=== PATIENT | female | born 2005 | race Caucasian/White ===

== ENCOUNTER 2025-04-30 18:10 | Emergency (ER) | payer OTHER ==
[~2025-04-30] VITALS: Ht 167.6 cm; Wt 64.0 kg
[2025-04-30 18:14] VITALS: O2SAT 98
[2025-04-30] MEDS ORDERED: LORAZEPAM 2MG/ML INJ IV ONE (19:00)
[2025-04-30] MEDS: ACETAMINOPHEN 325MG TABLET PO ONE (19:23)
[2025-04-30] MEDS: SODIUM CHLORIDE 0.9% 1,000 ML IV ONE ×2 (19:23→20:55)
[2025-04-30] MEDS: LORAZEPAM 2MG/ML UD SYRINGE IV SCH (19:24)
[2025-04-30 19:32] LABS: BASOPHILS % 0.5 % (0.0-2.0); EOSINOPHILS % 0.5 % (0.0-5.0); HEMATOCRIT. 39.3 % (36.0-48.0); HEMOGLOBIN. 13.6 g/dL (12.0-16.0); LYMPHOCYTES % 26.3 % (20.0-50.0); MEAN CORPUSCULAR HEMOGLOBIN 30.4 pg (28.0-32.0); MEAN CORPUSCULAR HGB CONC 34.5 g/dL (31.0-37.0); MEAN CORPUSCULAR VOLUME 88.2 fL (81.0-99.0); MEAN PLATELET VOLUME 9.1 fl (7.4-10.4); MONOCYTES % 4.7 % (2.0-8.0); PLATELET 233 x1000/uL (130-400); RED BLOOD CELL COUNT 4.46 mill/uL (4.2-5.4); RED CELL DISTRIBUTION WIDTH 12.7 % (11.6-14.6)
[2025-04-30 19:40] LABS: CARBON DIOXIDE 26 mEq/L (21-32); CHLORIDE 105 mEq/L (98-107); INR 1.1; POTASSIUM 3.8 mEq/L (3.5-5.1); PROTHROMBIN TIME 11.4 sec (9.6-11.0); SODIUM 139 mEq/L (136-145)
[2025-04-30 19:41] LABS: CALCIUM 9.5 mg/dL (8.7-10.4)
[2025-04-30 19:45] LABS: CREATININE 0.9 mg/dL (0.6-1.0)
[2025-04-30 19:46] LABS: ETHANOL BLOOD < 10 mg/dL (<10); GLUCOSE 101 mg/dL (70-105); UREA NITROGEN BLOOD 17 mg/dL (9-23)
[2025-04-30 19:56] LABS: TROPONIN I HIGH SENSITIVITY < 4 ng/L (3.0-34)
[2025-04-30 21:35] VITALS: TEMP 36.9
[2025-04-30 23:14] VITALS: BP 114/67; PULSE 62; RESP 19; O2SAT 100
== END 2025-04-30 23:30 | disposition home or self-care (01) ==
LOC: ER 18:10
DX: R55 Syncope and collapse (principal); F41.9 Anxiety disorder, unspecified; F41.0 Panic disorder [episodic paroxysmal anxiety]
CPT/HCPCS: 80048; 80320; 85025; 85610; 84484; 36415; 71045; 93005; 96361; 96374; 99285; J2060; J7030; G0480

== ENCOUNTER 2025-09-30 04:02 | Emergency (ER) | payer OTHER ==
[~2025-09-30] VITALS: Ht 160 cm; Wt 64.0 kg
[2025-09-30 04:10] VITALS: TEMP 37.1; O2SAT 100
[2025-09-30 04:26] LABS: BASOPHILS % 0.4 % (0.0-2.0); EOSINOPHILS % 0.5 % (0.0-5.0); HEMATOCRIT. 43.5 % (36.0-48.0); HEMOGLOBIN. 14.6 g/dL (12.0-16.0); LYMPHOCYTES % 32.4 % (20.0-50.0); MEAN PLATELET VOLUME 8.9 fl (7.4-10.4); MONOCYTES % 4.9 % (2.0-8.0); NEUTROPHILS % 61.8 % (40.0-76.0); PLATELET 253 x1000/uL (130-400); RED BLOOD CELL COUNT 5.04 mill/uL (4.2-5.4); RED CELL DISTRIBUTION WIDTH 13.9 % (11.6-14.6)
[2025-09-30 04:48] LABS: CREATININE 1.0 mg/dL (0.6-1.0)
[2025-09-30 04:49] LABS: UREA NITROGEN BLOOD 8 mg/dL (9-23)
[2025-09-30] MEDS: ONDANSETRON 4MG ODT PO ONE (05:11)
[2025-09-30 05:28] LABS: ASPARTATE AMINOTRANSFERASE 18 IU/L (<34); BILIRUBIN DIRECT 0.4 mg/dL (<=3.0); BILIRUBIN TOTAL 1.1 mg/dL (0.1-1.0); PROTEIN TOTAL 7.2 g/dL (6.0-8.3)
[2025-09-30 05:33] LABS: HCG SCREEN NEGATIVE
[2025-09-30] MEDS ORDERED: ONDA4TAB50 MT (05:50)
[2025-09-30] MEDS ORDERED: MAG-55 MT (05:50)
[2025-09-30] MEDS: POTASSIUM CHLORIDE 20MEQ/PACKET PO ONE (06:04)
[2025-09-30] MEDS: KETOROLAC 15MG/ML VIAL IM ONE (06:04)
[2025-09-30 06:09] VITALS: BP 117/71; PULSE 100; RESP 20; O2SAT 98
== END 2025-09-30 06:19 | disposition home or self-care (01) ==
LOC: ER 04:02
DX: K29.70 Gastritis, unspecified, without bleeding (principal); R11.2 Nausea with vomiting, unspecified; F41.9 Anxiety disorder, unspecified; Z79.899 Other long term (current) drug therapy
CPT/HCPCS: 99284; 80076; 80048; 81025; 84703; 83690; 85025; 36415; 93005; 96372; J1885; Q0162

== ENCOUNTER 2025-09-30 10:57 | Emergency (ER) | payer OTHER ==
[~2025-09-30] VITALS: Ht 167.6 cm; Wt 68.0 kg
[~2025-09-30 10:57] MED LIST: MAG-55 MT; ONDA4TAB50 MT
[2025-09-30 10:59] VITALS: BP 138/88; PULSE 127; RESP 16; TEMP 36.7; O2SAT 100
[2025-09-30] MEDS: METOCLOPRAMIDE HCL 10MG/2ML VIAL IV ONE (11:20)
[2025-09-30] MEDS: SODIUM CHLORIDE 0.9% 1,000 ML IV ONE (11:20)
== END 2025-09-30 11:50 | disposition left against medical advice (07) ==
LOC: ER 10:57 → CMPBEDREQ 13:01
DX: R11.2 Nausea with vomiting, unspecified (principal); F41.9 Anxiety disorder, unspecified
CPT/HCPCS: 99283; 96374; 96361; J2765; J7030

== ENCOUNTER 2025-10-02 04:36 | Inpatient (IN) | payer OTHER ==
[~2025-10-02] VITALS: Ht 160 cm; Wt 72.7 kg
[2025-10-02 04:45] VITALS: O2SAT 98
[2025-10-02] MEDS: ONDANSETRON HCL 4MG/2ML INJ IV ONE (05:30)
[2025-10-02] MEDS: KETOROLAC 15MG/ML VIAL IV ONE (05:32)
[2025-10-02] MEDS: SODIUM CHLORIDE 0.9% 1,000 ML IV ONE (05:33)
[2025-10-02 05:37] LABS: BASOPHILS % 0.6 % (0.0-2.0); EOSINOPHILS % 1.4 % (0.0-5.0); HEMATOCRIT. 44.5 % (36.0-48.0); HEMOGLOBIN. 15.9 g/dL (12.0-16.0); LYMPHOCYTES % 25.5 % (20.0-50.0); MEAN PLATELET VOLUME 9.9 fl (7.4-10.4); MONOCYTES % 5.8 % (2.0-8.0); NEUTROPHILS % 66.7 % (40.0-76.0); PLATELET 282 x1000/uL (130-400); RED BLOOD CELL COUNT 5.36 mill/uL (4.2-5.4); RED CELL DISTRIBUTION WIDTH 13.8 % (11.6-14.6)
[2025-10-02] MEDS: LORAZEPAM 2MG/ML UD SYRINGE IV NR (05:45)
[2025-10-02 05:48] LABS: CREATININE 1.1 mg/dL (0.6-1.0); UREA NITROGEN BLOOD 10 mg/dL (9-23)
[2025-10-02 05:50] LABS: ASPARTATE AMINOTRANSFERASE 20 IU/L (<34); BILIRUBIN DIRECT 0.4 mg/dL (<=3.0); BILIRUBIN TOTAL 1.1 mg/dL (0.1-1.0); PROTEIN TOTAL 8.8 g/dL (6.0-8.3); TROPONIN I HIGH SENSITIVITY < 4 ng/L (3.0-34)
[2025-10-02 06:23] LABS: HCG SCREEN NEGATIVE
[2025-10-02 10:01] LABS: CLARITY URINE TURBID (CLEAR); COLOR URINE BLOODY (YELLOW); PH URINE 5.0 (4.5-8.0); SPECIFIC GRAVITY URINE 1.039 (1.005-1.030)
[2025-10-02 10:02] LABS: GLUCOSE URINE NEGATIVE (NEGATIVE); KETONES URINE 3+ (NEGATIVE); LEUKOCYTE ESTERASE URINE 2+ (NEGATIVE); NITRITE URINE POSITIVE (NEGATIVE); OCCULT BLOOD URINE 2+ (NEGATIVE); PROTEIN URINE 2+ (NEGATIVE); UROBILINOGEN URINE 0.2 E.U./dL (0.2-1.0)
[2025-10-02 10:08] LABS: BACTERIA URINE 1+; RBC URINE TNTC /hpf (0-2); SQUAMOUS EPITHELIAL CELL URINE 2+ /lpf (RARE/1+); WBC URINE 25-50 /hpf (0-2); YEAST URINE NONE SEEN
[2025-10-02] MEDS: LORAZEPAM 1MG TABLET PO PRN (10:26)
[2025-10-02 10:30] VITALS: BP 107/92; PULSE 88; RESP 16; TEMP 36.418
[2025-10-02 12:00] VITALS: BP 112/66; PULSE 106; RESP 15; TEMP 36.6; O2SAT 100
[2025-10-02] MEDS ORDERED: ACETAMINOPHEN 325MG TABLET PO PRN (12:00)
[2025-10-02] MEDS: POTASSIUM CHLORIDE 20MEQ TABLET SR PO SCH (13:00)
[2025-10-02] MEDS: ASPIRIN 81MG TABLET PO SCH (13:00)
[2025-10-02] MEDS: PANTOPRAZOLE SODIUM 40 MG/VIAL IV SCH (14:34)
[2025-10-02] MEDS: ONDANSETRON HCL 4MG/2ML INJ IV PRN (14:34)
[2025-10-02] MEDS: CEFTRIAXONE 1GM/50ML 50 ML IV SCH (15:03)
[2025-10-02 16:00] VITALS: BP 131/85; PULSE 112; RESP 16; TEMP 36.4; O2SAT 100
[2025-10-02] MEDS ORDERED: KCL 20MEQ/100ML PREMIX 100 ML IV SCH (16:00)
[2025-10-02 17:10] LABS: TRIGLYCERIDE 57.0 mg/dL (0-150)
[2025-10-02 17:11] LABS: LDL CHOLESTEROL 82.0 mg/dL (5-100)
[2025-10-02 17:13] LABS: T4 FREE 1.88 ng/dL (0.89-1.76)
[2025-10-02 20:00] VITALS: BP 112/77; PULSE 101; RESP 18; TEMP 36.8; O2SAT 98
[2025-10-02] MEDS: ATORVASTATIN CALCIUM 40MG TABLET PO SCH (20:16)
[2025-10-02] MEDS: LORAZEPAM 2MG/ML UD SYRINGE IV PRN (20:55)
[2025-10-02] MEDS: KCL 20MEQ/100ML PREMIX 100 ML IV SCH (20:57)
[2025-10-03] VITALS: BP 121/77; PULSE 109; RESP 18; TEMP 36.8; O2SAT 100
[2025-10-03] MEDS: DEXT 5%/0.45% NACL KCL 20MEQ/L 1,000 ML IV SCH (02:11)
[2025-10-03 04:00] VITALS: BP 124/84; PULSE 140; RESP 18; TEMP 36.7; O2SAT 100
[2025-10-03] MEDS: LORAZEPAM 2MG/ML UD SYRINGE IV PRN (07:02)
[2025-10-03 08:00] VITALS: BP 122/85; PULSE 121; RESP 15; TEMP 36.7; O2SAT 98
[2025-10-03 09:35] LABS: BASOPHILS % 0.7 % (0.0-2.0); EOSINOPHILS % 3.2 % (0.0-5.0); HEMATOCRIT. 40.2 % (36.0-48.0); HEMOGLOBIN. 14.2 g/dL (12.0-16.0); LYMPHOCYTES % 30.8 % (20.0-50.0); MEAN PLATELET VOLUME 10.2 fl (7.4-10.4); MONOCYTES % 6.4 % (2.0-8.0); NEUTROPHILS % 58.9 % (40.0-76.0); PLATELET 221 x1000/uL (130-400); RED BLOOD CELL COUNT 4.69 mill/uL (4.2-5.4); RED CELL DISTRIBUTION WIDTH 13.8 % (11.6-14.6)
[2025-10-03 09:45] LABS: CREATININE 0.9 mg/dL (0.6-1.0); UREA NITROGEN BLOOD 10 mg/dL (9-23)
[2025-10-03] MEDS: POTASSIUM CHLORIDE 20MEQ TABLET SR PO NR (11:15)
[2025-10-03 12:00] VITALS: BP 118/72; PULSE 98; RESP 14; TEMP 36.9; O2SAT 98
[2025-10-03] MEDS: METOPROLOL TARTRATE 25MG TABLET PO NR (12:31)
[2025-10-03] MEDS: SODIUM CHLORIDE 0.9% 1,000 ML IV ONE (13:04)
[2025-10-03 16:00] VITALS: BP 120/81; PULSE 95; RESP 16; TEMP 36.4; O2SAT 98
[2025-10-03 20:00] VITALS: BP 118/77; PULSE 95; RESP 16; TEMP 36.3; O2SAT 100
[2025-10-03] MEDS: METOPROLOL TARTRATE 25MG TABLET PO SCH (21:54)
[2025-10-03] MEDS: HYDROXYZINE 25MG TABLET PO PRN (23:57)
[2025-10-04] VITALS: BP 122/75; PULSE 99; RESP 18; TEMP 36.8; O2SAT 100
[2025-10-04 04:00] VITALS: BP 113/70; PULSE 102; RESP 16; TEMP 37.2; O2SAT 100
[2025-10-04 08:00] VITALS: BP 106/68; PULSE 83; RESP 18; TEMP 36.4; O2SAT 100
[2025-10-04] MEDS: LORAZEPAM 2MG/ML UD SYRINGE IV PRN (10:07)
[2025-10-04] MEDS ORDERED: LEVO750T68 MT (11:22)
[2025-10-04] MEDS ORDERED: METO25TA6 PO (11:23)
[2025-10-04 12:00] VITALS: BP 119/82; PULSE 88; RESP 19; TEMP 36.3; O2SAT 100
[2025-10-04 16:00] VITALS: BP 120/82; PULSE 81; RESP 18; TEMP 36.3; O2SAT 100
[2025-10-04 20:00] VITALS: BP_SYST 111; BP_SYST 120; BP_DIAS 74; BP_DIAS 75; PULSE 84; PULSE 89; RESP 18; RESP 19; TEMP 36.2; TEMP 36.4; O2SAT 100; O2SAT 98
[2025-10-04 20:53] LABS: BASOPHILS % 0.9 % (0.0-2.0); EOSINOPHILS % 2.5 % (0.0-5.0); HEMATOCRIT. 37.9 % (36.0-48.0); HEMOGLOBIN. 13.0 g/dL (12.0-16.0); LYMPHOCYTES % 48.8 % (20.0-50.0); MEAN PLATELET VOLUME 9.4 fl (7.4-10.4); MONOCYTES % 6.6 % (2.0-8.0); NEUTROPHILS % 41.2 % (40.0-76.0); PLATELET 212 x1000/uL (130-400); RED BLOOD CELL COUNT 4.44 mill/uL (4.2-5.4); RED CELL DISTRIBUTION WIDTH 13.8 % (11.6-14.6)
[2025-10-04 21:08] LABS: CREATININE 0.8 mg/dL (0.6-1.0); UREA NITROGEN BLOOD < 5 mg/dL (9-23)
[2025-10-05] VITALS: BP 106/65; PULSE 82; RESP 18; TEMP 36.2; O2SAT 100
[2025-10-05 04:00] VITALS: BP 97/68; PULSE 76; RESP 16; TEMP 36.2; O2SAT 98
[2025-10-05 08:00] VITALS: BP 110/73; PULSE 83; RESP 16; TEMP 36.7; O2SAT 99
[2025-10-05 12:00] VITALS: BP 112/60; PULSE 76; RESP 16; TEMP 36.4; O2SAT 99
[2025-10-05] MEDS ORDERED: KCL 20MEQ/100ML PREMIX 100 ML IV NR (13:00)
[2025-10-05] MEDS: POTASSIUM CHLORIDE 20MEQ TABLET SR PO NR (13:17)
[2025-10-05] MEDS: METOCLOPRAMIDE HCL 10MG/2ML VIAL IV NR (13:17)
[2025-10-05] MEDS ORDERED: METO-293 MT (15:44)
[2025-10-05 15:46] VITALS: BP 112/60; PULSE 76; RESP 16; TEMP 98
[2025-10-05 16:00] VITALS: BP 125/72; PULSE 80; RESP 16; TEMP 36.7; O2SAT 99
[2025-10-05] MEDS: METOCLOPRAMIDE HCL 10MG/2ML VIAL IV SCH (17:17)
[2025-10-05] MEDS ORDERED: FAMOTIDINE 20MG/2ML VIAL IV SCH (21:00)
== END 2025-10-05 18:20 | disposition home or self-care (01) | DRG 720 ==
LOC: ER 04:36 → 6WST 06:45 → EDBEDREQ 06:47 → EDBEDREQTM 06:47
PROVIDERS: ADMIT Internal Medicine; ATTEND Internal Medicine
DX: A41.9 Sepsis, unspecified organism (principal); N17.0 Acute kidney failure with tubular necrosis; I24.9 Acute ischemic heart disease, unspecified; N39.0 Urinary tract infection, site not specified; E87.6 Hypokalemia; F41.9 Anxiety disorder, unspecified; R11.2 Nausea with vomiting, unspecified; Z79.899 Other long term (current) drug therapy
CPT/HCPCS: 36415; 71045; 74018; 76700; 80048; 80061; 80076; 81003; 83036; 84145; 84439; 84443; 84484; 84703; 85025; 93005; 96361; 96374; 96375; 99285; J0696; J1885; J2060; J2405; J2470; J2765; J3480; J7030